=== PATIENT | male | born 1970 | race Caucasian/White ===

== ENCOUNTER 2016-08-24 08:51 | Emergency (ER) | payer BC ==
[~2016-08-24] VITALS: Ht 167.6 cm; Wt 96.3 kg
[2016-08-24 08:57] VITALS: BP 116/86; PULSE 79; RESP 16; TEMP 98; O2SAT 98
--- NOTE | 2016-08-24 09:29 | PD ---
HPI Chief Complaint: Back/ Neck Pain or Injury Time Seen by Provider: 09:16 Travel History International Travel<30 days: No Contact w/Intl Traveler<30days: No Traveled to known affect area: No History of Present Illness HPI This 38-year-old male is complaining of back pain. He's been having this pain since yesterday and is getting more severe. The pain is aggravated by any movement. There is no history of trauma. Does not radiate down his leg. It doesn't radiate to his left hip. There is no abdominal pain. Pain is very sharp and severe but quite transient and related to movement [facility] Past Medical History Medical History: Denies Significant Hx Diminished Hearing: No Tetanus Vaccination: Unknown Influenza Vaccination: No Past Surgical History Other Surgery: Yes ("skull") Social History Alcohol Use: Yes (beer, mixed drinks occasionally) Tobacco Use: No Substance Use: No Allergies-Medications (Allergen,Severity, Reaction): Coded Allergies: No Known Allergies (Unverified , 08/24/16) Reported Meds & Prescriptions Reported Meds & Active Scripts Active No Active Prescriptions or Reported Medications Review of Systems General / Constitutional: No: Fever, Chills Eyes: No: Diploplia HENT: No: Lightheadedness Cardiovascular: No: Chest Pain or Discomfort, Palpitations Respiratory: No: Cough Gastrointestinal: No: Vomiting, Diarrhea Genitourinary: No: Decreased Urinary Output, Incontinence Musculoskeletal: No: Myalgias Physical Exam Narrative GENERAL: Well-developed male. When the patient is at rest he appears fairly comfortable. Any movement causes quite severe pain SKIN: Warm and dry. HEAD: Atraumatic. Normocephalic. EYES: Pupils equal and round. No scleral icterus. No injection or drainage. ENT: No nasal bleeding or discharge. Mucous membranes pink and moist. NECK: Trachea midline. No JVD. CARDIOVASCULAR: Regular rate and rhythm. No murmur appreciated. RESPIRATORY: No accessory muscle use. Clear to auscultation. Breath sounds equal bilaterally. GASTROINTESTINAL: Abdomen soft, non-tender, nondistended. Hepatic and splenic margins not palpable. MUSCULOSKELETAL: No obvious deformities. No clubbing. No cyanosis. No edema. There is some tenderness in the left sacroiliac area. Straight leg raising is nontender tender bilaterally. He has good strength in plantar and dorsiflexion of the foot. Sensation of the legs is intact NEUROLOGICAL: Awake and alert. No obvious cranial nerve deficits. Motor grossly within normal limits. Normal speech. PSYCHIATRIC: Appropriate mood and affect; insight and judgment normal. Data Data Last Documented VS Vital Signs Date Time Temp Pulse Resp B/P Pulse Ox O2 Delivery O2 Flow Rate FiO2 08/24/16 08:57 98.0 79 16 116/86 98 Orders Spine, Lumbar Comp W/Obliq (08/24/16 09:25) Oxycodone-Acetamin 5-325 Mg (Percocet (08/24/16 09:30) Ondansetron Odt (Zofran Odt) (08/24/16 09:30) MDM Medical Decision Making Medical Screen Exam Complete: Yes Emergency Medical Condition: Yes Medical Record Reviewed: Yes Differential Diagnosis Differential includes HNP, musculoskeletal back pain, Narrative Course Plain x-ray was done and read as negative. Impression is musculoskeletal pain. Patient does appear quite uncomfortable and will prescribe Percocet for home use. I have cautioned him about side effects. He is to follow-up with his own medical doctor if his pain persists Diagnosis Primary Impression: Back pain Qualified Code: M54.5 - Acute left-sided low back pain without sciatica Scripts Oxycodone-Acetaminophen (Percocet)5-325 mg Tab1 Tab PO Q4H PRN (PAIN) #30 TAB Ref 0 Prov:Chris Guaman MD 08/24/16 Disposition: 01 DISCHARGE HOME Condition: Stable Chris Guamna MD Aug 24, 2016 09:29
[2016-08-24] MEDS ORDERED: oxyCODONE/ACETAMINOPHEN 5 MG/325 MG TAB PO ONE (09:30)
[2016-08-24] MEDS ORDERED: ONDANSETRON ODT 4 MG TAB PO ONE (09:30)
--- NOTE | 2016-08-24 10:09 | RADHPO ---
EXAM DATE/TIME: 08/24/2016 09:48 [facility] COMPARISON: No previous studies available for comparison. INDICATIONS : Lower back pain since yesterday with no known injury. MEDICAL HISTORY : None. SURGICAL HISTORY : None. ENCOUNTER: Initial ACUITY: 2 days PAIN SCORE: 10/10 LOCATION: Lower back. FINDINGS: There are five non-rib bearing vertebral bodies. The vertebral bodies are in normal alignment withou t evidence of subluxation or scoliosis. The disc spaces are maintained. The posterior elements are intact without evidence of spondylolysis. The pedicles are intact. Bony mineralization is normal. No fracture is identified. CONCLUSION: Unremarkable examination of the lumbar spine. Naty Worthy MD on August 24, 2016 at 10:08 Board Certified Radiologist. This report was verified electronically.
[2016-08-24] MEDS ORDERED: PERC5TAB12 PO (10:29)
== END 2016-08-24 10:51 | disposition home or self-care (01) ==
LOC: PHEFT 08:51 → EDBD 08:51 → PHEFT 10:51
DX: M54.5 Low back pain (principal)
CPT/HCPCS: 72110; 99283

== ENCOUNTER 2017-12-14 07:17 | Emergency (ER) | payer BC ==
[~2017-12-14] VITALS: Ht 167.6 cm; Wt 98.0 kg
[~2017-12-14 07:17] MED LIST: PERC5TAB12 PO
[2017-12-14 07:25] VITALS: BP 124/65; PULSE 110; RESP 26; TEMP 98.3; O2SAT 95
[2017-12-14 07:30] VITALS: BP 124/65; PULSE 110; RESP 26; TEMP 98.3; O2SAT 95
[2017-12-14] MEDS ORDERED: SODIUM CHLORIDE 0.9% FLUSH 10 ML FLUSH IVF PRN (07:30)
[2017-12-14 07:36] LABS: AUTOMATED NEUTROPHIL # 13.1 TH/MM3 (1.8-7.7); BASOPHIL % 0.3 % (0.0-2.0); HEMATOCRIT 44.8 % (39.0-51.0); HEMOGLOBIN 15.9 GM/DL (13.0-17.0); LYMPH % 13.2 % (9.0-44.0); MEAN CELL VOLUME 87.1 FL (80.0-100.0); MEAN CORPUSCULAR HEMOGLOBIN 30.9 PG (27.0-34.0); MEAN CORPUSCULAR HGB CONC 35.5 % (32.0-36.0); MONO % 2.6 % (0.0-8.0); MONOCYTE # 0.4 TH/MM3 (0-0.9); NEUT % 83.9 % (16.0-70.0); PLATELET COUNT 269 TH/MM3 (150-450); RED BLOOD COUNT 5.14 MIL/MM3 (4.50-5.90); RED CELL DISTRIBUTION WIDTH 12.1 % (11.6-17.2); WHITE BLOOD COUNT 15.5 TH/MM3 (4.0-11.0)
[2017-12-14 07:44] LABS: CHLORIDE 105 MEQ/L (98-107); SODIUM (NA) 135 MEQ/L (136-145)
[2017-12-14 07:47] LABS: CALCIUM 9.1 MG/DL (8.5-10.1)
[2017-12-14 07:48] LABS: ALBUMIN 4.5 GM/DL (3.4-5.0); BICARBONATE 13.8 MEQ/L (21.0-32.0); BLOOD UREA NITROGEN 10 MG/DL (7-18); GLUCOSE,RANDOM 140 MG/DL (74-106); INTERNATIONAL NORMALIZED RATIO 1.1 RATIO; MAGNESIUM 1.8 MG/DL (1.5-2.5); PROTHROMBIN TIME - PATIENT 10.7 SEC (9.8-11.6)
[2017-12-14 07:52] LABS: TOTAL BILIRUBIN ADULT 0.6 MG/DL (0.2-1.0); TOTAL PROTEIN 8.5 GM/DL (6.4-8.2)
[2017-12-14 07:53] LABS: ALKALINE PHOSPHATASE 59 U/L (45-117)
[2017-12-14 07:56] LABS: TROPONIN I LESS THAN 0.02 NG/ML (0.02-0.05)
--- NOTE | 2017-12-14 08:03 | RADRPT ---
EXAM DATE/TIME: 12/14/2017 07:33 [facility] COMPARISON: No previous studies available for comparison. INDICATIONS : Chest pain. Possible Overdose MEDICAL HISTORY : None. SURGICAL HISTORY : None. ENCOUNTER: Initial ACUITY: 1 day PAIN SCORE: 2/10 LOCATION: Bilateral chest FINDINGS: A single view of the chest demonstrates the lungs to be symmetrically aerated without evidence of mas s, infiltrate or effusion. The cardiomediastinal contours are unremarkable. Osseous structures are intact. CONCLUSION: No focal or acute pulmonary infiltrates. Armani Cherry MD on December 14, 2017 at 8:01 Board Certified Radiologist. This report was verified electronically.
[2017-12-14 08:18] LABS: ALT (GPT) 69 U/L (12-78); AST (GOT) 40 U/L (15-37); GLOMERULAR FILTRATION RATE 65 ML/MIN (>89)
[2017-12-14] MEDS ORDERED: ONDANSETRON ODT 4 MG TAB PO ONE (08:30)
[2017-12-14] MEDS ORDERED: SODIUM CHLOR 0.9% 250 ML INJ 250 ML IV ONE (08:30)
[2017-12-14] MEDS ORDERED: SODIUM CHLOR 0.9% 1000 ML INJ 1,000 ML IV ONE ×2 (08:30)
[2017-12-14] MEDS ORDERED: LORazepam 2 MG/ML VIAL IV PUSH ONE (08:30)
[2017-12-14 08:35] VITALS: BP 125/77; PULSE 102; RESP 18; O2SAT 97
--- NOTE | 2017-12-14 09:06 | PD ---
HPI Chief Complaint: Alcohol/Drug Intoxication Time Seen by Provider: 07:38 Travel History International Travel<30 days: No Contact w/Intl Traveler<30days: No Traveled to known affect area: No History of Present Illness HPI This is a 47-year-old male presented the ER for evaluation of chest tightness. Patient reports to drinking alcohol last night as well as snorting cocaine and since then he started having nausea but no vomiting until he came to the ER and started having vomiting. Vomiting is nonbilious nonbloody nonprojectile. Chest tightness is started after snorting cocaine last night, right more than left, pain is rated at 3 out of 10, dull, nothing makes it better but moving makes it worse. No fevers chills or night sweats. Patient has no history of hypertension or diabetes. [facility] Past Medical History Medical History: Denies Significant Hx Diminished Hearing: No Tetanus Vaccination: Unknown Influenza Vaccination: No Past Surgical History Other Surgery: Yes ("Skull") Social History Alcohol Use: Yes (Occ./social) Tobacco Use: Yes (1 PPD) Substance Use: No Allergies-Medications (Allergen,Severity, Reaction): Coded Allergies: No Known Allergies (Unverified Allergy, Unknown, 12/14/17) Reported Meds & Prescriptions Reported Meds & Active Scripts Active No Active Prescriptions or Reported Medications Review of Systems Except as stated in HPI: all other systems reviewed are Neg Physical Exam Narrative GENERAL: Alert oriented 3 no acute distress. SKIN: Focused skin assessment warm/dry. HEAD: Atraumatic. Normocephalic. EYES: Pupils equal and round. No scleral icterus. No injection or drainage. ENT: No nasal bleeding or discharge. Mucous membranes pink and moist. NECK: Trachea midline. No JVD. CARDIOVASCULAR: Regular rate and rhythm. No murmur appreciated. RESPIRATORY: No accessory muscle use. Clear to auscultation. Breath sounds equal bilaterally. GASTROINTESTINAL: Abdomen soft, non-tender, nondistended. Hepatic and splenic margins not palpable. MUSCULOSKELETAL: No obvious deformities. No clubbing. No cyanosis. No edema. NEUROLOGICAL: Awake and alert. No obvious cranial nerve deficits. Motor grossly within normal limits. Normal speech. PSYCHIATRIC: Appropriate mood and affect; insight and judgment normal. Data Data Last Documented VS Vital Signs Date Time Temp Pulse Resp B/P (MAP) Pulse Ox O2 Delivery O2 Flow Rate FiO2 12/14/17 08:35 102 18 125/77 (93) 97 Room Air 12/14/17 07:30 98.3 Orders Orders Electrocardiogram (12/14/17 07:20) Ckmb (Isoenzyme) Profile (12/14/17 07:20) Complete Blood Count With Diff (12/14/17 07:20) Comprehensive Metabolic Panel (12/14/17 07:20) Magnesium (Mg) (12/14/17 07:20) Prothrombin Time / Inr (Pt) (12/14/17 07:20) Act Partial Throm Time (Ptt) (12/14/17 07:20) Troponin I (12/14/17 07:20) Lipase (12/14/17 07:20) Chest, Single Ap (12/14/17 07:20) Ecg Monitoring (12/14/17 07:20) Iv Access Insert/Monitor (12/14/17 07:20) Oximetry (12/14/17 07:20) Sodium Chloride 0.9% Flush (Ns Flush) (12/14/17 07:30) Drug Screen, Random Urine (12/14/17 07:20) Alcohol (Ethanol) (12/14/17 07:20) CKMB (12/14/17 07:30) CKMB% (12/14/17 07:30) Ondansetron Odt (Zofran Odt) (12/14/17 08:30) Lorazepam Inj (Ativan Inj) (12/14/17 08:30) Sodium Chlor 0.9% 250 Ml Inj (Ns 250 Ml (12/14/17 08:30) Sodium Chlor 0.9% 1000 Ml Inj (Ns 1000 M (12/14/17 08:30) Sodium Chlor 0.9% 1000 Ml Inj (Ns 1000 M (12/14/17 08:30) Sodium Chlor 0.9% 1... W/Sodium Bicarbon (12/14/17 10:00) Ct Thorax/ Chest Wo Iv Contras (12/14/17 ) Comprehensive Metabolic Panel (12/14/17 10:00) Lactic Acid (12/14/17 10:00) Urinalysis - C+S If Indicated (12/14/17 12:23) Ed Discharge Order (12/14/17 13:06) Labs Laboratory Tests Test 12/14/17 07:30 12/14/17 08:00 12/14/17 11:30 12/14/17 12:05 White Blood Count 15.5 TH/MM3 Red Blood Count 5.14 MIL/MM3 Hemoglobin 15.9 GM/DL Hematocrit 44.8 % Mean Corpuscular Volume 87.1 FL Mean Corpuscular Hemoglobin 30.9 PG Mean Corpuscular Hemoglobin Concent 35.5 % Red Cell Distribution Width 12.1 % Platelet Count 269 TH/MM3 Mean Platelet Volume 9.0 FL Neutrophils (%) (Auto) 83.9 % Lymphocytes (%) (Auto) 13.2 % Monocytes (%) (Auto) 2.6 % Eosinophils (%) (Auto) 0.0 % Basophils (%) (Auto) 0.3 % Neutrophils # (Auto) 13.1 TH/MM3 Lymphocytes # (Auto) 2.0 TH/MM3 Monocytes # (Auto) 0.4 TH/MM3 Eosinophils # (Auto) 0.0 TH/MM3 Basophils # (Auto) 0.0 TH/MM3 CBC Comment DIFF FINAL Differential Comment Prothrombin Time 10.7 SEC Prothromb Time International Ratio 1.1 RATIO Activated Partial Thromboplast Time 25.2 SEC Blood Urea Nitrogen 10 MG/DL 8 MG/DL Creatinine 1.20 MG/DL 0.86 MG/DL Random Glucose 140 MG/DL 105 MG/DL Total Protein 8.5 GM/DL 6.8 GM/DL Albumin 4.5 GM/DL 3.7 GM/DL Calcium Level 9.1 MG/DL 8.1 MG/DL Magnesium Level 1.8 MG/DL Alkaline Phosphatase 59 U/L 47 U/L Aspartate Amino Transf (AST/SGOT) 40 U/L 35 U/L Alanine Aminotransferase (ALT/SGPT) 69 U/L 55 U/L Total Bilirubin 0.6 MG/DL 0.8 MG/DL Sodium Level 135 MEQ/L 143 MEQ/L Potassium Level 3.8 MEQ/L 3.9 MEQ/L Chloride Level 105 MEQ/L 112 MEQ/L Carbon Dioxide Level 13.8 MEQ/L 24.9 MEQ/L Anion Gap 16 MEQ/L 6 MEQ/L Estimat Glomerular Filtration Rate 65 ML/MIN 96 ML/MIN Total Creatine Kinase 361 U/L Creatine Kinase MB 3.7 NG/ML Creatine Kinase MB % 1.0 % Troponin I LESS THAN 0.02 NG/ML Lipase 69 U/L Ethyl Alcohol Level 5 MG/DL Urine Collection Type CLEAN CATCH Urine Color YELLOW Urine Turbidity CLEAR Urine pH 5.0 Urine Specific [place] GREATER/EQUAL 1.030 Urine Protein 30 mg/dL Urine Glucose (UA) NEG mg/dL Urine Ketones 15 mg/dL Urine Occult Blood MOD Urine Nitrite NEG Urine Bilirubin NEG Urine Urobilinogen 0.2 MG/DL Urine Leukocyte Esterase NEG Urine RBC 10-14 /hpf Urine Squamous Epithelial Cells 0-5 /hpf Urine Hyaline Casts 0-2 /lpf Microscopic Urinalysis Comment CULT NOT INDICATED Urine Collection Time 08:00 Urine Opiates Screen NEG Urine Barbiturates Screen NEG Urine Amphetamines Screen NEG Urine Benzodiazepines Screen NEG Urine Cocaine Screen POS Urine Cannabinoids Screen NEG Lactic Acid Level 2.7 mmol/L MDM Medical Decision Making Medical Screen Exam Complete: Yes Emergency Medical Condition: Yes Differential Diagnosis Cocaine induced chest pain, pneumonia, pneumothorax. ATN. Narrative Course This is a 27-year-old male presented the ER for evaluation of chest pain after snorting cocaine. Patient physical examination is unremarkable, labs show low bicarb of 13 that went up to 24 with 2 L of IV fluids. Patient admits to drinking alcohol which could be the reason for the low bicarb. Patient is not sick appearing and is not in acute distress. Vitals are stable and is afebrile. CAT scan of the chest shows a 7 mm nodule in the left upper lobe that may need a follow-up CAT scan as an outpatient study and I discussed those findings with the patient and he understands that he will tell his primary care physician about that. Meanwhile patient is stable and reports resolution of his symptoms and states that he has no motor chest pain. Patient will be discharged to follow-up with primary care physician. Laboratory Tests Test 12/14/17 07:30 12/14/17 08:00 12/14/17 11:30 12/14/17 12:05 White Blood Count 15.5 TH/MM3 Red Blood Count 5.14 MIL/MM3 Hemoglobin 15.9 GM/DL Hematocrit 44.8 % Mean Corpuscular Volume 87.1 FL Mean Corpuscular Hemoglobin 30.9 PG Mean Corpuscular Hemoglobin Concent 35.5 % Red Cell Distribution Width 12.1 % Platelet Count 269 TH/MM3 Mean Platelet Volume 9.0 FL Neutrophils (%) (Auto) 83.9 % Lymphocytes (%) (Auto) 13.2 % Monocytes (%) (Auto) 2.6 % Eosinophils (%) (Auto) 0.0 % Basophils (%) (Auto) 0.3 % Neutrophils # (Auto) 13.1 TH/MM3 Lymphocytes # (Auto) 2.0 TH/MM3 Monocytes # (Auto) 0.4 TH/MM3 Eosinophils # (Auto) 0.0 TH/MM3 Basophils # (Auto) 0.0 TH/MM3 CBC Comment DIFF FINAL Differential Comment Prothrombin Time 10.7 SEC Prothromb Time International Ratio 1.1 RATIO Activated Partial Thromboplast Time 25.2 SEC Blood Urea Nitrogen 10 MG/DL 8 MG/DL Creatinine 1.20 MG/DL 0.86 MG/DL Random Glucose 140 MG/DL 105 MG/DL Total Protein 8.5 GM/DL 6.8 GM/DL Albumin 4.5 GM/DL 3.7 GM/DL Calcium Level 9.1 MG/DL 8.1 MG/DL Magnesium Level 1.8 MG/DL Alkaline Phosphatase 59 U/L 47 U/L Aspartate Amino Transf (AST/SGOT) 40 U/L 35 U/L Alanine Aminotransferase (ALT/SGPT) 69 U/L 55 U/L Total Bilirubin 0.6 MG/DL 0.8 MG/DL Sodium Level 135 MEQ/L 143 MEQ/L Potassium Level 3.8 MEQ/L 3.9 MEQ/L Chloride Level 105 MEQ/L 112 MEQ/L Carbon Dioxide Level 13.8 MEQ/L 24.9 MEQ/L Anion Gap 16 MEQ/L 6 MEQ/L Estimat Glomerular Filtration Rate 65 ML/MIN 96 ML/MIN Total Creatine Kinase 361 U/L Creatine Kinase MB 3.7 NG/ML Creatine Kinase MB % 1.0 % Troponin I LESS THAN 0.02 NG/ML Lipase 69 U/L Ethyl Alcohol Level 5 MG/DL Urine Opiates Screen NEG Urine Barbiturates Screen NEG Urine Amphetamines Screen NEG Urine Benzodiazepines Screen NEG Urine Cocaine Screen POS Urine Cannabinoids Screen NEG Lactic Acid Level 2.7 mmol/L Last 24 hours Impressions Chest X-Ray 12/14/17 0720 Signed Impressions: Service Date/Time: Thursday, December 14, 2017 07:33 - CONCLUSION: No focal or acute pulmonary infiltrates. Armani Cherry MD Chest CT 12/14/17 0000 Signed Impressions: Service Date/Time: Thursday, December 14, 2017 09:30 - CONCLUSION: 1. There is a 7 mm partially calcified nodule in the anterior aspect of the left upper lobe. This probably represents a granuloma however there is no previous imaging of this and CT examination without contrast in 6 months to document stability is warranted. Carter Patel MD Diagnosis Primary Impression: Chest pain Qualified Codes: R07.9 - Chest pain, unspecified Additional Impression: Rhabdomyolysis Qualified Codes: M62.82 - Rhabdomyolysis Additional Instructions: Follow-up with primary care physician and return here if symptoms change or do not improve. Scripts No Active Prescriptions or Reported Meds Disposition: 01 DISCHARGE HOME Condition: Stable Cm Jones MD December 14, 2017 09:06
--- NOTE | 2017-12-14 09:52 | RADRPT ---
EXAM DATE/TIME: 12/14/2017 09:30 [facility] COMPARISON: No previous studies available for comparison. INDICATIONS : Short of breath. RADIATION DOSE: 20.75 CTDIvol (mGy) MEDICAL HISTORY : Asthma. SURGICAL HISTORY : Cranial surgery. ENCOUNTER: Initial ACUITY: 1 day PAIN SCALE: 2/10 LOCATION: chest TECHNIQUE: Volumetric scanning of the chest was performed. Using automated exposure control and adjustment of t he mA and/or kV according to patient size, radiation dose was kept as low as reasonably achievable to obtain optimal diagnostic quality images. DICOM format image data is available electronically for r eview and comparison. Follow-up recommendations for detected pulmonary nodules are based at a minimum on nodule size and pa tient risk factors according to Fleischner Society Guidelines. FINDINGS: CT imaging through the pulmonary parenchyma demonstrates a partially calcified 7 mm nodule in the ant erior aspect of the left upper lobe. It is well-circumscribed. The overall appearance of this would s uggest this may be a benign granuloma however this patient will need a followup CT scan in 6 months t o document stability. The pulmonary parenchyma is otherwise clear. The heart is normal in size. There is no significant hilar or mediastinal adenopathy. No pericardial or pleural effusion is evident. No axillary adenopathy is seen. The limited portions of upper abdomen visualized are unremarkable. CONCLUSION: 1. There is a 7 mm partially calcified nodule in the anterior aspect of the left upper lobe. This pro bably represents a granuloma however there is no previous imaging of this and CT examination without contrast in 6 months to document stability is warranted. Carter Patel MD on December 14, 2017 at 9:43 Board Certified Radiologist. This report was verified electronically.
[2017-12-14] MEDS ORDERED: SODIUM BICARBONATE 8.4% INJ 100 MEQ in SODIUM CHLOR 0.9% 1000 ML INJ 1,000 ML IV SCH (10:00)
--- NOTE | 2017-12-14 12:25 | EKG ---
Date Performed: 12/14/2017 Time Performed: 07:26:02 PTAGE: 47 years EKG: SINUS TACHYCARDIA ABNORMAL RHYTHM ECG NO PREVIOUS TRACING DOCTOR: Isaías Zazueta Interpretating Date/Time 12/14/2017 12:21:53
[2017-12-14 12:27] LABS: CHLORIDE 112 MEQ/L (98-107); SODIUM (NA) 143 MEQ/L (136-145)
[2017-12-14 12:38] LABS: ALBUMIN 3.7 GM/DL (3.4-5.0); ALKALINE PHOSPHATASE 47 U/L (45-117); ALT (GPT) 55 U/L (12-78); AST (GOT) 35 U/L (15-37); BICARBONATE 24.9 MEQ/L (21.0-32.0); BLOOD UREA NITROGEN 8 MG/DL (7-18); CALCIUM 8.1 MG/DL (8.5-10.1); CREATININE 0.86 MG/DL (0.60-1.30); GLOMERULAR FILTRATION RATE 96 ML/MIN (>89); GLUCOSE,RANDOM 105 MG/DL (74-106); TOTAL BILIRUBIN ADULT 0.8 MG/DL (0.2-1.0); TOTAL PROTEIN 6.8 GM/DL (6.4-8.2)
[2017-12-14 13:03] LABS: BILIRUBIN, URINE NEG (NEG); BLOOD, URINE MOD (NEG); GLUCOSE,URINE NEG (NEG); KETONE, URINE 15 mg/dL (NEG); NITRITE,URINE NEG (NEG); URINE COLOR YELLOW (YELLW/STRAW); URINE LEUKOCYTE ESTERASE NEG (NEG)
[2017-12-14 13:08] LABS: HYALINE CAST, URINE 0-2 /lpf (RARE); SQUAMOUS EPITHELIAL CELL URINE 0-5 /hpf (0-5)
[2017-12-14 13:25] VITALS: BP 110/62; PULSE 92; RESP 14; O2SAT 95
== END 2017-12-14 13:25 | disposition home or self-care (01) ==
LOC: PHED 07:17
DX: R07.9 Chest pain, unspecified (principal); M62.82 Rhabdomyolysis; R91.1 Solitary pulmonary nodule; R11.2 Nausea with vomiting, unspecified; R94.31 Abnormal electrocardiogram [ECG] [EKG]; F17.200 Nicotine dependence, unspecified, uncomplicated
CPT/HCPCS: 71045; 71250; 80053; 80307; 81001; 82550; 82552; 83605; 83690; 83735; 84484; 85025; 85610; 85730; 93005; 96361; 96365; 96366; 96375; 99285; J2060; J7030; J7050